=== PATIENT | female | born 1990 | race Caucasian/White ===

== ENCOUNTER 2018-02-13 06:44 | Emergency (ER) | payer OTHER, SELFPAY ==
[2018-02-13 06:49] VITALS: BP 157/98; PULSE 110; RESP 20; TEMP 37.2; O2SAT 98
--- NOTE | 2018-02-13 06:56 | DI.CT_ITS ---
SYMPTOMS/DIAGNOSIS: UPPER ABDOMINAL PAIN CT OF THE ABDOMEN AND PELVIS: Comparison is made with April,. Images were performed from the lung bases through the ischial tuberosities after IV and without oral contrast. There are mildly dilated loops of small bowel showing diffuse wall thickening, greater involving the mid and distal small bowel. The stomach and proximal small bowel, as well as colon, are unremarkable. The appendix appears normal. There is a trace amount of fluid in the pelvis, which may be physiologic. The uterus and ovaries are unremarkable. The lung bases are clear. The liver, spleen, pancreas, kidneys and gallbladder are unremarkable. IMPRESSION: Mildly dilated small bowel with thickened wall, consistent with inflammatory or infectious enteritis.
--- NOTE | 2018-02-13 06:57 | W.ED.GENAD ---
Discharge Plan Disposition Patient Disposition: HOME Condition: Stable Discharge Details Chief Complaint: Abd Prob Clinical Impression: Abdominal pain, Hypomagnesemia, Ovarian cyst Primary Care Provider: Jenifer Guzman ED Provider: Michael Rowan Home Meds and New Rx's Prescriptions: New ondansetron 4 mg tablet,disintegrating 4 mg PO TID PRN (Reason: nausea and vomiting) Qty: 9 RF: 0 Continue ibuprofen 600 MG tablet 600 mg PO NOW RF: 0 Discharge Instructions Instructions: Ovarian Cyst (ED), Abdominal Pain (ED), Hypomagnesemia (ED), Enteritis (ED) Additional Instructions: Please return immediately to the emergency department if you develop any new or worsening symptoms or if you become otherwise concerned. It is extremely important that you make an appointment to be seen in follow-up for this visit by your primary care doctor within the next week. Stand Alone Forms: Work Release Referrals: Jenifer Guzman [Primary Care Provider] - Discharge Data Discharge Date/Time-TO BE ENTERED AT DEPARTURE: 02/13/18 09:08 Medical Decision Making <Michael Rowan MD - Last Filed: 02/13/18 23:04> 27 yo female who denies chronic medical problems or prior surgeries comes in with acute onset upper abdomen pain and n/v around 5am, denies any symptoms yesterday. Denies having pain like this in the past. Drinks alcohol once a month, denies drug use. HAs soft nondistended abodmen, pain in the ruq/luq and epigastric area without guarding or rebound and no lopez's sign and no lower abdominal pain. Denies vaginal discharge so unlikely pid and given lack of pelvic pain or lower abdominal pain doubt torsion or appendicitis. Will obtain lipase, lfts and imaging to eval for pancreatitis and cholecystitis and pneumoperitoneum pt will be signed out pending labs and imaging and ultimate disposition Differential Diagnosis cholecystitis, pancreatitis, pneumoperitoneum <Nicole Miranda MD - Last Filed: 02/13/18 09:47> Becky Brown was signed out to me by Dr. Rowan at time of shift change with labs, CT abdomen/pelvis, reassessment pending. Labs show mild hypomagnesemia. CT shows small bowel wall thickening consistent with enteritis, infectious versus inflammatory, right ovarian cyst, trace free fluid in the pelvis. On my examination, patient is well and nontoxic appearing. She is pleasant, conversing normally, and appears comfortable. No further tachycardia. Her abdominal exam shows tenderness at the umbilicus and epigastric area. There is no lower abdominal tenderness. No rebound or guarding. At this point, patient's description of upper middle abdominal pain that began this morning followed by vomiting is more consistent with enteritis as etiology than ovarian cyst rupture. Lengthy discussion with patient regarding CT findings, including right ovarian cyst and likelihood of enteritis. Exam/history not consistent with significant hemorrhage from ovarian cyst, sepsis, or other acute life-threatening process at this time. Lengthy discussion with patient regarding return to the emergency department precautions and importance of outpatient follow-up with her PCP. Plan for Rx Zofran, 400 mg magnesium oxide here. Patient is amenable to the plan. Medical Records Medical records reviewed: Yes I reviewed the patient's medical records. Imaging Data Radiologic Study: Attestation: I personally reviewed and interpreted this imaging study as follows: Radiologist's impression: COMPARISON: CT ABD PELVIS WITH CONTRAST 04/28/2017 2:11 PM FINDINGS: Lower thorax: No acute findings. ABDOMEN: Liver: Normal. No mass. Gallbladder and bile ducts: Normal. No calcified stones. No ductal dilation. Pancreas: Normal. No ductal dilation. Spleen: Normal. No splenomegaly. Adrenals: Normal. No mass. Kidneys and ureters: Normal. No hydronephrosis. Stomach and bowel: Small bowel wall thickening compatible with a nonspecific enteritis, either infectious or inflammatory. Appendix: No evidence of appendicitis. PELVIS: Bladder: Unremarkable as visualized. Reproductive: Probable dominant ovarian follicular cyst present on the right. This measures 2.1 cm ABDOMEN and PELVIS: Intraperitoneal space: Trace free fluid is present which is nonspecific but may reflect physiologic fluid or rupture of an ovarian cyst or follicle. Bones/joints: No acute fracture. No dislocation. Soft tissues: Unremarkable. Vasculature: Normal. No abdominal aortic aneurysm. Lymph nodes: Normal. No enlarged lymph nodes. Other findings: . IMPRESSION: 1. Small bowel wall thickening compatible with a nonspecific enteritis, either infectious or inflammatory. 2. Trace free pelvic fluid. Lab Data Lab results reviewed: Yes I reviewed the patient's lab results. Laboratory Tests Range/Units 02/13/18 02/13/18 02/13/18 07:00 07:00 07:05 WBC (4.4-10.8) k/cumm 14.07 H RBC (4.00-5.20) m/cumm 4.74 Hgb (12.0-15.5) g/dL 13.7 Hct (36.0-46.0) % 40.4 MCV (80-95) fL 85.2 MCH (27.0-33.0) pg 28.9 MCHC (32.0-36.0) g/dL 33.9 RDW (11.7-14.6) % 14.0 Plt Count (130-400) x1000/uL 274 MPV (8.0-11.0) fL 10.0 Immature Gran % 0.2 Neutrophils % 87.3 Lymphocytes % 9.5 Monocytes % 2.3 Eosinophils % 0.5 Basophils % 0.2 Absolute Neutrophils (1.2-6.7) k/cumm 12.28 H Absolute Lymphocytes (1.2-3.4) k/cumm 1.34 Absolute Monocytes (0.11-0.7) k/cumm 0.32 Absolute Eosinophils (0.0-0.7) k/cumm 0.07 Absolute Basophils (0.0-0.2) k/cumm 0.03 PT (9.3-10.8) sec INR (1.0-3.5) APTT (21.0-31.4) sec Magnesium (1.8-2.4) mg/dL 1.6 L Total Bilirubin (0.2-1.0) mg/dL 0.3 Conjugated Bilirubin (0.00-0.20) mg/dL 0.09 AST (15-37) U/L 17 ALT (12-78) U/L 29 Alkaline Phosphatase (46-116) U/L 90 Total Protein (6.4-8.2) g/dL 7.6 Albumin (3.4-5.0) g/dL 3.8 Lipase (73-393) U/L 145 Urine Color (Yellow) Yellow Urine Clarity Clear Urine pH (5-8) 5.5 Ur Specific [place] (1.005-1.025) >= 1.030 H Urine Protein (Negative) mg/dL Trace H Urine Ketones (Negative) mg/dL Trace H Urine Blood (Negative) Small H Urine Nitrite (Negative) Negative Urine Bilirubin (Negative) Negative Urine Urobilinogen (Up TO 0.2) EU/dL 0.2 Ur Leukocyte Esterase (Negative) Negative Urine RBC (0-2) 3-5 H Urine WBC (0-5) HPF 0-2 Ur Epithelial Cells (Negative) HPF Moderate Urine Crystals (Negative) HPF Negative Urine Bacteria (Negative) HPF Moderate Urine Casts (Negative) LPF Negative Urine Mucus (Negative) Moderate Ur Culture Indicated? No/sq. contamination Urine Glucose (Negative) mg/dL Negative Range/Units 02/13/18 07:25 WBC (4.4-10.8) k/cumm RBC (4.00-5.20) m/cumm Hgb (12.0-15.5) g/dL Hct (36.0-46.0) % MCV (80-95) fL MCH (27.0-33.0) pg MCHC (32.0-36.0) g/dL RDW (11.7-14.6) % Plt Count (130-400) x1000/uL MPV (8.0-11.0) fL Immature Gran % Neutrophils % Lymphocytes % Monocytes % Eosinophils % Basophils % Absolute Neutrophils (1.2-6.7) k/cumm Absolute Lymphocytes (1.2-3.4) k/cumm Absolute Monocytes (0.11-0.7) k/cumm Absolute Eosinophils (0.0-0.7) k/cumm Absolute Basophils (0.0-0.2) k/cumm PT (9.3-10.8) sec 9.9 INR (1.0-3.5) 1.0 APTT (21.0-31.4) sec 23.3 Magnesium (1.8-2.4) mg/dL Total Bilirubin (0.2-1.0) mg/dL Conjugated Bilirubin (0.00-0.20) mg/dL AST (15-37) U/L ALT (12-78) U/L Alkaline Phosphatase (46-116) U/L Total Protein (6.4-8.2) g/dL Albumin (3.4-5.0) g/dL Lipase (73-393) U/L Urine Color (Yellow) Urine Clarity Urine pH (5-8) Ur Specific [place] (1.005-1.025) Urine Protein (Negative) mg/dL Urine Ketones (Negative) mg/dL Urine Blood (Negative) Urine Nitrite (Negative) Urine Bilirubin (Negative) Urine Urobilinogen (Up TO 0.2) EU/dL Ur Leukocyte Esterase (Negative) Urine RBC (0-2) Urine WBC (0-5) HPF Ur Epithelial Cells (Negative) HPF Urine Crystals (Negative) HPF Urine Bacteria (Negative) HPF Urine Casts (Negative) LPF Urine Mucus (Negative) Ur Culture Indicated? Urine Glucose (Negative) mg/dL HPI <Michael Rowan MD - Last Filed: 02/13/18 23:04> General Mode of arrival: ambulatory. Date/Time Provider Initiated Documentation: 02/13/18 06:50. Limitations to Documentation: no limitations. Information obtained by: patient. History of Present Illness 27 year old F presents to the emergency department with the chief complaint of abdominal pain, described as severe, with intensity rated at 8. Quality is described as stabbing, and is localized to the abdomen. Patient reports no radiation. Patient started experiencing this hour(s) (2) and it has been constant. No relieving factors improve symptom(s), Patient notes nausea/vomiting. Patient did receive the following treatments prior to arrival, none Related Data Home Medications Medication Instructions Recorded Confirmed ibuprofen 600 mg PO NOW tab 06/05/17 02/13/18 ondansetron 4 mg PO TID PRN #9 tab 02/13/18 Previous Rx's Medication Instructions Recorded ibuprofen 600 mg PO NOW tab 06/05/17 ondansetron 4 mg PO TID PRN #9 tab 02/13/18 Allergies Allergy/AdvReac Type Severity Reaction Status Date / Time sertraline HCl [From Zoloft] Allergy Unverified 02/13/18 06:51 Environmental Allergy Intermediate Runny Uncoded 02/13/18 06:51 nose, sneezing General Stated Complaint: Abd Prob SOBIA: 3 Review of Systems <Michael Rowan MD - Last Filed: 02/13/18 23:04> Review of Systems All systems reviewed & are unremarkable except as noted in HPI and below Constitutional Denies chills, Denies fever(s) and Denies weakness Cardiovascular Denies chest pain and Denies dyspnea Respiratory Denies dyspnea Genitourinary Denies dysuria Musculoskeletal Denies joint swelling Integumentary/Breasts Denies rash Neurologic Denies weakness Psychiatric Denies depression Exam <Michael Rowan MD - Last Filed: 02/13/18 23:04> Const General: no acute distress Orientation: alert [facility] Head: normal to inspection Ears: external ears normal General nose exam: external nose normal Mouth: moist mucous membranes Eyes General: appearance normal, both eyes and all related structures Neck Neck: normal visual inspection Resp Effort & Inspection: normal respiratory effort and able to speak in complete sentences Cardio Rate: regular rate GI Inspection: normal to inspection Palpation: soft and tender in the epigastrum, in the LUQ and in the RUQ Skin General skin exam: no rashes or lesions noted Neuro General: alert and oriented x3 Extrem General: normal to inspection Psych Mental Status: mental status grossly normal Course <Michael Rowan MD - Last Filed: 02/13/18 23:04> Vital Signs Temperature 37.2 C 02/13/18 06:49 Pulse 110 H 02/13/18 06:49 Respiratory Rate 20 02/13/18 06:49 Blood Pressure 157/98 H 02/13/18 06:49 Pulse Oximetry 98 02/13/18 06:49 Temperature 37.2 C 02/13/18 06:49 Temperature Source Temporal Artery Scan 02/13/18 06:49 Pulse 110 H 02/13/18 06:49 Respiratory Rate 20 02/13/18 06:49 Respiratory Effort Non-Labored 02/13/18 06:49 Blood Pressure 157/98 H 02/13/18 06:49 Pulse Oximetry 98 02/13/18 06:49 Oxygen Delivery Method Room Air 02/13/18 06:49 Oxygen Flow Rate 0 02/13/18 06:49 Pain Level 10 02/13/18 06:52
--- NOTE | 2018-02-13 07:00 | ED.GENADUL_ITS ---
Discharge Plan Disposition Patient Disposition: HOME Condition: Stable Discharge Details Chief Complaint: Abd Prob Clinical Impression: Abdominal pain, Hypomagnesemia, Ovarian cyst Primary Care Provider: Jenifer Guzman ED Provider: Michael Rowan Home Meds and New Rx's Prescriptions: New ondansetron 4 mg tablet,disintegrating 4 mg PO TID PRN (Reason: nausea and vomiting) Qty: 9 RF: 0 Continue ibuprofen 600 MG tablet 600 mg PO NOW RF: 0 Discharge Instructions Instructions: Ovarian Cyst (ED), Abdominal Pain (ED), Hypomagnesemia (ED), Enteritis (ED) Additional Instructions: Please return immediately to the emergency department if you develop any new or worsening symptoms or if you become otherwise concerned. It is extremely important that you make an appointment to be seen in follow-up for this visit by your primary care doctor within the next week. Stand Alone Forms: Work Release Referrals: Jenifer Guzman [Primary Care Provider] - Discharge Data Discharge Date/Time-TO BE ENTERED AT DEPARTURE: 02/13/18 09:08 Medical Decision Making <Michael Rowan MD - Last Filed: 02/13/18 23:04> 27 yo female who denies chronic medical problems or prior surgeries comes in with acute onset upper abdomen pain and n/v around 5am, denies any symptoms yesterday. Denies having pain like this in the past. Drinks alcohol once a month , denies drug use. HAs soft nondistended abodmen, pain in the ruq/luq and epigastric area without guarding or rebound and no lopez's sign and no lower abdominal pain. Denies vaginal discharge so unlikely pid and given lack of pelvic pain or lower abdominal pain doubt torsion or appendicitis. Will obtain lipase, lfts and imaging to eval for pancreatitis and cholecystitis and pneumoperitoneum pt will be signed out pending labs and imaging and ultimate disposition Differential Diagnosis cholecystitis, pancreatitis, pneumoperitoneum <Nicole Miranda MD - Last Filed: 02/13/18 09:47> Becky Brown was signed out to me by Dr. Rowan at time of shift change with labs, CT abdomen/pelvis, reassessment pending. Labs show mild hypomagnesemia. CT shows small bowel wall thickening consistent with enteritis, infectious versus inflammatory, right ovarian cyst, trace free fluid in the pelvis. On my examination, patient is well and nontoxic appearing. She is pleasant, conversing normally, and appears comfortable. No further tachycardia. Her abdominal exam shows tenderness at the umbilicus and epigastric area. There is no lower abdominal tenderness. No rebound or guarding. At this point, patient' s description of upper middle abdominal pain that began this morning followed by vomiting is more consistent with enteritis as etiology than ovarian cyst rupture. Lengthy discussion with patient regarding CT findings, including right ovarian cyst and likelihood of enteritis. Exam/history not consistent with significant hemorrhage from ovarian cyst, sepsis, or other acute life- threatening process at this time. Lengthy discussion with patient regarding return to the emergency department precautions and importance of outpatient follow-up with her PCP. Plan for Rx Zofran, 400 mg magnesium oxide here. Patient is amenable to the plan. Medical Records Medical records reviewed: Yes I reviewed the patient's medical records. Imaging Data Radiologic Study: Attestation: I personally reviewed and interpreted this imaging study as follows: Radiologist's impression: COMPARISON: CT ABD PELVIS WITH CONTRAST 04/28/2017 2:11 PM FINDINGS: Lower thorax: No acute findings. ABDOMEN: Liver: Normal. No mass. Gallbladder and bile ducts: Normal. No calcified stones. No ductal dilation. Pancreas: Normal. No ductal dilation. Spleen: Normal. No splenomegaly. Adrenals: Normal. No mass. Kidneys and ureters: Normal. No hydronephrosis. Stomach and bowel: Small bowel wall thickening compatible with a nonspecific enteritis, either infectious or inflammatory. Appendix: No evidence of appendicitis. PELVIS: Bladder: Unremarkable as visualized. Reproductive: Probable dominant ovarian follicular cyst present on the right. This measures 2.1 cm ABDOMEN and PELVIS: Intraperitoneal space: Trace free fluid is present which is nonspecific but may reflect physiologic fluid or rupture of an ovarian cyst or follicle. Bones/joints: No acute fracture. No dislocation. Soft tissues: Unremarkable. Vasculature: Normal. No abdominal aortic aneurysm. Lymph nodes: Normal. No enlarged lymph nodes. Other findings: . IMPRESSION: 1. Small bowel wall thickening compatible with a nonspecific enteritis, either infectious or inflammatory. 2. Trace free pelvic fluid. Lab Data Lab results reviewed: Yes I reviewed the patient's lab results. Laboratory Tests Range/Units 02/13/18 02/13/18 02/13/18 07:00 07:00 07:05 WBC (4.4-10.8) k/cumm 14.07 H RBC (4.00-5.20) m/cumm 4.74 Hgb (12.0-15.5) g/dL 13.7 Hct (36.0-46.0) % 40.4 MCV (80-95) fL 85.2 MCH (27.0-33.0) pg 28.9 MCHC (32.0-36.0) g/dL 33.9 RDW (11.7-14.6) % 14.0 Plt Count (130-400) x1000/uL 274 MPV (8.0-11.0) fL 10.0 Immature Gran % 0.2 Neutrophils % 87.3 Lymphocytes % 9.5 Monocytes % 2.3 Eosinophils % 0.5 Basophils % 0.2 Absolute Neutrophils (1.2-6.7) k/cumm 12.28 H Absolute Lymphocytes (1.2-3.4) k/cumm 1.34 Absolute Monocytes (0.11-0.7) k/cumm 0.32 Absolute Eosinophils (0.0-0.7) k/cumm 0.07 Absolute Basophils (0.0-0.2) k/cumm 0.03 PT (9.3-10.8) sec INR (1.0-3.5) APTT (21.0-31.4) sec Magnesium (1.8-2.4) mg/dL 1.6 L Total Bilirubin (0.2-1.0) mg/dL 0.3 Conjugated Bilirubin (0.00-0.20) mg/dL 0.09 AST (15-37) U/L 17 ALT (12-78) U/L 29 Alkaline Phosphatase (46-116) U/L 90 Total Protein (6.4-8.2) g/dL 7.6 Albumin (3.4-5.0) g/dL 3.8 Lipase (73-393) U/L 145 Urine Color (Yellow) Yellow Urine Clarity Clear Urine pH (5-8) 5.5 Ur Specific [place] (1.005-1.025) >= 1.030 H Urine Protein (Negative) mg/dL Trace H Urine Ketones (Negative) mg/dL Trace H Urine Blood (Negative) Small H Urine Nitrite (Negative) Negative Urine Bilirubin (Negative) Negative Urine Urobilinogen (Up TO 0.2) EU/dL 0.2 Ur Leukocyte Esterase (Negative) Negative Urine RBC (0-2) 3-5 H Urine WBC (0-5) HPF 0-2 Ur Epithelial Cells (Negative) HPF Moderate Urine Crystals (Negative) HPF Negative Urine Bacteria (Negative) HPF Moderate Urine Casts (Negative) LPF Negative Urine Mucus (Negative) Moderate Ur Culture Indicated? No/sq. contamination Urine Glucose (Negative) mg/dL Negative Range/Units 02/13/18 07:25 WBC (4.4-10.8) k/cumm RBC (4.00-5.20) m/cumm Hgb (12.0-15.5) g/dL Hct (36.0-46.0) % MCV (80-95) fL MCH (27.0-33.0) pg MCHC (32.0-36.0) g/dL RDW (11.7-14.6) % Plt Count (130-400) x1000/uL MPV (8.0-11.0) fL Immature Gran % Neutrophils % Lymphocytes % Monocytes % Eosinophils % Basophils % Absolute Neutrophils (1.2-6.7) k/cumm Absolute Lymphocytes (1.2-3.4) k/cumm Absolute Monocytes (0.11-0.7) k/cumm Absolute Eosinophils (0.0-0.7) k/cumm Absolute Basophils (0.0-0.2) k/cumm PT (9.3-10.8) sec 9.9 INR (1.0-3.5) 1.0 APTT (21.0-31.4) sec 23.3 Magnesium (1.8-2.4) mg/dL Total Bilirubin (0.2-1.0) mg/dL Conjugated Bilirubin (0.00-0.20) mg/dL AST (15-37) U/L ALT (12-78) U/L Alkaline Phosphatase (46-116) U/L Total Protein (6.4-8.2) g/dL Albumin (3.4-5.0) g/dL Lipase (73-393) U/L Urine Color (Yellow) Urine Clarity Urine pH (5-8) Ur Specific [place] (1.005-1.025) Urine Protein (Negative) mg/dL Urine Ketones (Negative) mg/dL Urine Blood (Negative) Urine Nitrite (Negative) Urine Bilirubin (Negative) Urine Urobilinogen (Up TO 0.2) EU/dL Ur Leukocyte Esterase (Negative) Urine RBC (0-2) Urine WBC (0-5) HPF Ur Epithelial Cells (Negative) HPF Urine Crystals (Negative) HPF Urine Bacteria (Negative) HPF Urine Casts (Negative) LPF Urine Mucus (Negative) Ur Culture Indicated? Urine Glucose (Negative) mg/dL HPI <Michael Rowan MD - Last Filed: 02/13/18 23:04> General Mode of arrival: ambulatory . Date/Time Provider Initiated Documentation: 02/13/18 06:50 . Limitations to Documentation: no limitations . Information obtained by: patient . History of Present Illness 27 year old F presents to the emergency department with the chief complaint of abdominal pain, described as severe, with intensity rated at 8. Quality is described as stabbing, and is localized to the abdomen. Patient reports no radiation. Patient started experiencing this hour(s) (2) and it has been constant. No relieving factors improve symptom(s), Patient notes nausea/ vomiting. Patient did receive the following treatments prior to arrival, none Related Data Home Medications Medication Instructions Recorded Confirmed ibuprofen 600 mg PO NOW tab 06/05/17 02/13/18 ondansetron 4 mg PO TID PRN #9 tab 02/13/18 Previous Rx's Medication Instructions Recorded ibuprofen 600 mg PO NOW tab 06/05/17 ondansetron 4 mg PO TID PRN #9 tab 02/13/18 Allergies Allergy/AdvReac Type Severity Reaction Status Date / Time sertraline HCl [From Zoloft] Allergy Unverified 02/13/18 06:51 Environmental Allergy Intermediate Runny Uncoded 02/13/18 06:51 nose, sneezing General Stated Complaint: Abd Prob SOBIA: 3 Review of Systems <Michael Rowan MD - Last Filed: 02/13/18 23:04> Review of Systems All systems reviewed & are unremarkable except as noted in HPI and below Constitutional Denies chills, Denies fever(s) and Denies weakness Cardiovascular Denies chest pain and Denies dyspnea Respiratory Denies dyspnea Genitourinary Denies dysuria Musculoskeletal Denies joint swelling Integumentary/Breasts Denies rash Neurologic Denies weakness Psychiatric Denies depression Exam <Michael Rowan MD - Last Filed: 02/13/18 23:04> Const General: no acute distress Orientation: alert [facility] Head: normal to inspection Ears: external ears normal General nose exam: external nose normal Mouth: moist mucous membranes Eyes General: appearance normal, both eyes and all related structures Neck Neck: normal visual inspection Resp Effort & Inspection: normal respiratory effort and able to speak in complete sentences Cardio Rate: regular rate GI Inspection: normal to inspection Palpation: soft and tender in the epigastrum, in the LUQ and in the RUQ Skin General skin exam: no rashes or lesions noted Neuro General: alert and oriented x3 Extrem General: normal to inspection Psych Mental Status: mental status grossly normal Course <Michael Rowan MD - Last Filed: 02/13/18 23:04> Vital Signs Temperature 37.2 C 02/13/18 06:49 Pulse 110 H 02/13/18 06:49 Respiratory Rate 20 02/13/18 06:49 Blood Pressure 157/98 H 02/13/18 06:49 Pulse Oximetry 98 02/13/18 06:49 Temperature 37.2 C 02/13/18 06:49 Temperature Source Temporal Artery Scan 02/13/18 06:49 Pulse 110 H 02/13/18 06:49 Respiratory Rate 20 02/13/18 06:49 Respiratory Effort Non-Labored 02/13/18 06:49 Blood Pressure 157/98 H 02/13/18 06:49 Pulse Oximetry 98 02/13/18 06:49 Oxygen Delivery Method Room Air 02/13/18 06:49 Oxygen Flow Rate 0 02/13/18 06:49 Pain Level 10 02/13/18 06:52
[2018-02-13] MEDS: Ondansetron 4 MG/2 ML VIAL IVP (07:05)
[2018-02-13] MEDS: Normal Saline 1,000 ML 1000 ML IV (07:05)
[2018-02-13] MEDS: Ketorolac 15 MG/ML VIAL IVP (07:10)
[2018-02-13 07:24] LABS: Bilirubin Negative (Negative); Blood Small (Negative); Clarity Clear; Glucose Negative (Negative); Ketones Trace mg/dL (Negative); Leukocyte Esterase Negative (Negative); Nitrite Negative (Negative); Specific Gravity >= 1.030 (1.005-1.025); Urobilinogen 0.2 EU/dL (Up TO 0.2); pH 5.5 (5-8)
[2018-02-13 07:28] LABS: Abs Immature Grans 0.03 k/cumm (0.0-0.09); Absolute Basophil Count 0.03 k/cumm (0.0-0.2); Absolute Eosinophil Count 0.07 k/cumm (0.0-0.7); Absolute Lymphocyte Count 1.34 k/cumm (1.2-3.4); Basophils % 0.2; Eosinophils % 0.5; HCT 40.4 % (36.0-46.0); HGB 13.7 g/dL (12.0-15.5); Immature Grans % 0.2; Lymphocytes % 9.5; Mean Corp. HGB Concentration 33.9 g/dL (32.0-36.0); Mean Corpuscular Hemoglobin 28.9 pg (27.0-33.0); Mean Corpuscular Volume 85.2 fL (80-95); Monocytes % 2.3; Neutrophils % 87.3; Platelet Count 274 x1000/uL (130-400); RBC 4.74 m/cumm (4.00-5.20); White Blood Cell Count 14.07 k/cumm (4.4-10.8)
[2018-02-13 07:30] LABS: Absolute Monocyte Count 0.32 k/cumm (0.11-0.7); Absolute Neutrophil Count 12.28 k/cumm (1.2-6.7)
[2018-02-13 07:33] LABS: Bacteria Moderate HPF (Negative); C & S Indicated? No/Sq. Contamination; Casts Negative LPF (Negative); Crystals Negative HPF (Negative); Epithelial Cells Moderate HPF (Negative); Mucus Moderate (Negative); WBC 0-2 HPF (0-5)
[2018-02-13] MEDS: Omnipaque 350 MG/ML 100 ML BTL IJ (07:46)
[2018-02-13 07:47] LABS: ALT 29 U/L (12-78); AST 17 U/L (15-37); Albumin 3.8 g/dL (3.4-5.0); Alkaline Phosphatase 90 U/L (46-116); Bilirubin, Direct 0.09 mg/dL (0.00-0.20); Bilirubin, Total 0.3 mg/dL (0.2-1.0); Lipase 145 U/L (73-393); Magnesium 1.6 mg/dL (1.8-2.4); Total Protein 7.6 g/dL (6.4-8.2)
[2018-02-13 07:50] LABS: PTT Activated 23.3 sec (21.0-31.4); Prothrombin Time 9.9 sec (9.3-10.8)
--- NOTE | 2018-02-13 08:05 | DI.VRAD_ITS ---
EXAM: CT Abdomen and Pelvis With Intravenous Contrast EXAM DATE/TIME: 02/13/2018 6:57 AM CLINICAL HISTORY: 27 years old, female; Pain; Other: Upper abd pain TECHNIQUE: Axial computed tomography images of the abdomen and pelvis with intravenous contrast. Coronal and sagittal reformatted images were created and reviewed. COMPARISON: CT ABD PELVIS WITH CONTRAST 04/28/2017 2:11 PM FINDINGS: Lower thorax: No acute findings. ABDOMEN: Liver: Normal. No mass. Gallbladder and bile ducts: Normal. No calcified stones. No ductal dilation. Pancreas: Normal. No ductal dilation. Spleen: Normal. No splenomegaly. Adrenals: Normal. No mass. Kidneys and ureters: Normal. No hydronephrosis. Stomach and bowel: Small bowel wall thickening compatible with a nonspecific enteritis, either infectious or inflammatory. Appendix: No evidence of appendicitis. PELVIS: Bladder: Unremarkable as visualized. Reproductive: Probable dominant ovarian follicular cyst present on the right. This measures 2.1 cm ABDOMEN and PELVIS: Intraperitoneal space: Trace free fluid is present which is nonspecific but may reflect physiologic fluid or rupture of an ovarian cyst or follicle. Bones/joints: No acute fracture. No dislocation. Soft tissues: Unremarkable. Vasculature: Normal. No abdominal aortic aneurysm. Lymph nodes: Normal. No enlarged lymph nodes. Other findings: . IMPRESSION: 1. Small bowel wall thickening compatible with a nonspecific enteritis, either infectious or inflammatory. 2. Trace free pelvic fluid. Dictated and Authenticated by: Ambrocio Olson MD. Ordering:EDNA IRVIN MD
[2018-02-13] MEDS: Magnesium Oxide 400 MG TAB PO (08:52)
[2018-02-13 09:10] VITALS: BP 136/81; PULSE 95; RESP 16; TEMP 37; O2SAT 99
== END 2018-02-13 09:08 | disposition home or self-care (01) ==
PROVIDERS: Emergency Provider Emergency Medicine; PCP Family Medicine
DX: R10.10 Upper abdominal pain, unspecified (principal); E83.42 Hypomagnesemia; R11.2 Nausea with vomiting, unspecified; N83.201 Unspecified ovarian cyst, right side; R93.3 Abnormal findings on diagnostic imaging of other parts of digestive tract
CPT/HCPCS: 36415; 80076; 81025; 83690; 96361; 96374; 96375; 99285; 74177; 81003; 81015; 83735; 85025; 85610; 85730; 99284; J1885; J2405; J3490

== ENCOUNTER 2018-08-17 14:07 | Outpatient (REF) | payer OTHER, SELFPAY ==
--- NOTE | 2018-08-17 13:30 | PAPFT_PTH ---
PATIENT: Becky Brown LOC: [facility] U#:[id number] AGE/SX: 28/F ROOM: RE08/17/[address]: Patricia Rowan NP : 1990 BED: DIS: 08/17/2018 SPEC #: [id number] RECD: 08/17/18 17:51 STATUS: LUIS REElvis #: [id number] GLORIA: 08/17/18 13:[address]: Patricia Rowan NP DEPT: [facility] Cytology RECD BY: Grazyna Paul ENTERED: 08/17/18 17:51 SP TYPE: PAPFT OTHR DR: Jenifer Guzman Tissues: 1 - CX/ENDOCX FOR PAP SMEARS Procedures: PAP THIN PREP/UVM Screening Comments: [id number]
== END 2018-08-17 14:27 ==
LOC: LBN 14:07
PROVIDERS: PCP Family Medicine; Visit Provider Nurse Practitioner Women's Health
DX: Z12.4 Encounter for screening for malignant neoplasm of cervix (principal)
CPT/HCPCS: 88142

== ENCOUNTER 2018-08-18 09:00 | Outpatient (CLI) | payer OTHER, SELFPAY ==
--- NOTE | 2018-08-18 12:35 | DI.US_ITS ---
SYMPTOMS/DIAGNOSIS: ABNORMAL UTERINE BLEEDING, PELVIC PAIN, R10.2 PELVIC ULTRASOUND: Transabdominal and transvaginal examination was performed. The uterus measures 8 cm long x 4.4 cm AP x 5.7 cm transverse. The endometrial stripe measures 1.7 cm. It is homogeneous with no abnormal blood flow. No myometrial mass is seen. Cervical nabothian cysts are present. Both the ovaries were visualized. They are gross unremarkable. No free pelvic fluid or hydronephrosis is identified. IMPRESSION: Endometrial stripe measuring 1.7 cm, which is mildly thickened but otherwise unremarkable. A follow-up pelvic ultrasound should be considered for reevaluation of the endometrial stripe in six to eight weeks.
== END 2018-08-18 09:20 ==
PROVIDERS: PCP Family Medicine; Visit Provider Nurse Practitioner Women's Health
DX: R10.2 Pelvic and perineal pain (principal); N93.8 Other specified abnormal uterine and vaginal bleeding; R93.89 Abnormal findings on diagnostic imaging of other specified body structures
CPT/HCPCS: 76830; 76856

== ENCOUNTER 2018-08-22 11:30 | Emergency (ER) | payer OTHER, SELFPAY ==
--- NOTE | 2018-08-22 11:37 | NUR.NOTE ---
pt states that she has had vaginal bleeding for a month as well as what she discribes as a lump on her stomach 5cm with intermittent localized pin 11/28 pt went to [facility] last and received an US which she has not received results pt ih here today because she had significantly more bleeding this morning
[2018-08-22 11:42] VITALS: BP 159/92; PULSE 80; RESP 16; TEMP 37.3; O2SAT 100
--- NOTE | 2018-08-22 11:52 | DI.CT_ITS ---
SYMPTOMS/DIAGNOSIS: LEFT LOWER ABD MASS, VAGINAL BLEEDING ABDOMINAL AND PELVIC CT: CT examination of the abdomen and pelvis was performed with a bolus infusion of 100 cc's of Omnipaque 350. Images obtained through the lung bases are unremarkable. The liver, spleen and pancreas appear normal. There is a stable 1 cm left adrenal nodule unchanged from CT of 02/13/18. Otherwise the adrenals and kidneys are unremarkable with no evidence of obstruction or calcification. The abdominal aorta is of normal diameter and no major vascular abnormality is seen. The appendix appears normal. No evidence of diverticulitis or bowel obstruction. ELECTRONICS SPECIALIST structures appear intact. No abdominal wall hernia seen. The patient reportedly has a palpable abnormality left paraumbilical and this corresponds to a subcutaneous elongated focus of somewhat irregular radiodensity, this appears little changed from previous examination of 02/13/18. This could represent infectious process or scar. Neoplastic disease not likely but not entirely excluded. No hernia identified.
--- NOTE | 2018-08-22 11:57 | W.ED.GENAD ---
Discharge Plan Disposition Patient Disposition: HOME Condition: Good Discharge Details Chief Complaint: Abd Prob Clinical Impression: Abnormal vaginal bleeding Primary Care Provider: Jenifer Guzman ED Provider: Luis A Saleem Home Meds and New Rx's Prescriptions: No Action albuterol sulfate 90 mcg/actuation HFA aerosol inhaler 2 puff IH Q6H PRNRF: 0 norethindrone-e.estradiol-iron [] 1 mg-20 mcg (24)/75 mg (4) tablet 1 tab PO DAILY Qty: 84 RF: 1 Discharge Instructions Instructions: Dysfunctional Uterine Bleeding (ED) Additional Instructions: Your hemoglobin levels are stable, your vital signs are stable. I have discussed your case with Dr. Villafuerte, and she agrees on the need for estrogen and progesterone to help stop your bleeding. She is calling in a prescription for you at this time. Please go to your pharmacy to pick this up. Please follow-up closely with them for reassessment. If you notice any worsening of your symptoms, or any new symptoms such as vomiting, diarrhea, fever, chills, shortness of breath, chest pain, numbness, weakness, or fainting , please return immediately to the emergency department for reevaluation. Please follow up with your primary care provider as soon as possible for reassessment and reevaluation. As always, it was a pleasure participating in your medical care today. Referrals: Yuli Villafuerte MD [ [facility] STAFF PHYSICIAN] - Discharge Data Discharge Date/Time-TO BE ENTERED AT DEPARTURE: 08/22/18 14:42 Medical Decision Making This is a pleasant 28-year-old female who presents today for evaluation of vaginal bleeding for the last month, notably worsened over the last 2 to 3 days. She states that she is soaking a pad every 1-1/2 hours. She denies any severe abdominal or pelvic pain. She does admit to mild nausea and cramping. She does have a palpable mild firm mass in her left lower abdomen but it feels to be in the subcutaneous tissues. With a notably worsening vaginal bleeding, do feel that she may benefit from oral estrogen at this time. She had an ultrasound last week which showed a thickened endometrial stripe. We will get laboratory work-up to evaluate for hemoglobin status, gently rehydrate, perform a vaginal exam, and also get a CT scan to rule out any acute mass, or other concerning abnormality with the atypical pelvic mass/pain. 2:[address] scan has returned and demonstrates no evidence of acute process. The atypical subcutaneous aspect on her abdomen is most likely secondary to a fibrous fat buildup. No evidence of malignancy, mass, or other significant abnormalities. No pelvic abnormalities. Laboratory work-up demonstrates a stable hemoglobin, normal vital signs no hypotension or tachycardia. I discussed the case with Dr. Villafuerte, she agrees on the need for supplemental estrogen and progesterone. She will be calling this prescription into the patient's pharmacy. And contacting them for close follow-up. I have extensively reviewed the treatment plan and discharge instructions with the patient and their family. I have addressed all patient concerns at this time. The patient and family was made aware of what symptoms to monitor for that would warrant a return to the emergency department. Discussed the plan with the patient and family, they demonstrate verbal understanding and agreement with our assessment and plan at this time. Exam(s) a US:US pelvis & transvaginal SYMPTOMS/DIAGNOSIS: ABNORMAL UTERINE BLEEDING, PELVIC PAIN, R10.2 PELVIC ULTRASOUND: Transabdominal and transvaginal examination was performed. The uterus measures 8 cm long x 4.4 cm AP x 5.7 cm transverse. The endometrial stripe measures 1.7 cm. It is homogeneous with no abnormal blood flow. No myometrial mass is seen. Cervical nabothian cysts are present. Both the ovaries were visualized. They are gross unremarkable. No free pelvic fluid or hydronephrosis is identified. IMPRESSION: Endometrial stripe measuring 1.7 cm, which is mildly thickened but otherwise unremarkable. A follow-up pelvic ultrasound should be considered for reevaluation of the endometrial stripe in six to eight weeks. Ordered By: Patricia Rowan NP CC: Exam(s) a CT:CT abdomen & pelvis w SYMPTOMS/DIAGNOSIS: LEFT LOWER ABD MASS, VAGINAL BLEEDING ABDOMINAL AND PELVIC CT: CT examination of the abdomen and pelvis was performed with a bolus infusion of 100 cc's of Omnipaque 350. Images obtained through the lung bases are unremarkable. The liver, spleen and pancreas appear normal. There is a stable 1 cm left adrenal nodule unchanged from CT of 02/13/18. Otherwise the adrenals and kidneys are unremarkable with no evidence of obstruction or calcification. The abdominal aorta is of normal diameter and no major vascular abnormality is seen. The appendix appears normal. No evidence of diverticulitis or bowel obstruction. SHOE TRIMMER structures appear intact. No abdominal wall hernia seen. The patient reportedly has a palpable abnormality left paraumbilical and this corresponds to a subcutaneous elongated focus of somewhat irregular radiodensity, this appears little changed from previous examination of 02/13/18. This could represent infectious process or scar. Neoplastic disease not likely but not entirely excluded. No hernia identified. [id number]: Total DLP = 0.00 mGy-cm Ordered By: Luis A Saleem DO [facility] General Date/Time Provider Initiated Documentation: 08/22/18 11:43. HPI Narrative: This is a pleasant 50-year-old female with no significant past medical history who presents for vaginal bleeding. Patient states that vaginal bleeding started 1 month ago on July 24, she has [facility] and had an ultrasound 1 week ago that showed a thickening of the endometrial stripe. The bleeding was notably mild over the last 3 to 4 weeks, however over the last 72 hours and his notably increased, is going through a new pad every 1-1/2 hours and she states that it is soaked. She does admit to mild cramping but that is normal. She denies any other urinary symptoms, vomiting or diarrhea, or any previous vaginal bleeding. She is not on control and is not been on control greater than 2 years. She denies any previous surgical history. She also complains of a small lump in her left lower abdomen. She states that it is tender to palpation, and is been present for the last few weeks. Patient has no other complaints at this time. No other modifying factors. Of note she does state that they tried to call [facility] multiple times today and they were unable to get in contact with anyone. 10 years ago the patient did have chlamydia, but no sexually transmitted infection since then. Related Data Home Medications Medication Instructions Recorded Confirmed albuterol sulfate HFA 90 2 puff IH Q6H PRN 08/17/18 08/22/18 mcg/actuation aerosol inhaler norethindrone 1 mg-ethinyl 1 tab PO DAILY #84 tab 08/22/18 estradiol 20 mcg (24)-iron 75 mg (4) tablet Previous Rx's Medication Instructions Recorded norethindrone 1 mg-ethinyl 1 tab PO DAILY #84 tab 08/22/18 estradiol 20 mcg (24)-iron 75 mg (4) tablet Allergies Allergy/AdvReac Type Severity Reaction Status Date / Time sertraline HCl [From Zoloft] Allergy Unverified 08/22/18 11:44 Environmental Allergy Intermediate Runny Uncoded 08/22/18 11:44 nose, sneezing General Stated Complaint: Abd Prob SOBIA: 3 Review of Systems Review of Systems All systems reviewed & are unremarkable except as noted in HPI and below PFSH Social History Smoking/Tobacco Use Status: Never Alcohol Intake: never Drug use: Never Substance use type: does not use Do you feel safe at home: Yes Do you feel safe in your relationship?: Yes Female Reproductive History Menstrual Age of Menarche: 10 control method: none and other (fiance with vasectomy) History History 0 Para Hx # Term Pregnancies Multiple births Hx # Pregnancies Ectopic pregnancies AB induced Hx Number of Living Children AB spontaneous Exam Narrative Exam Narrative: 1.Const: Well-nourished, Well-developed, appearing stated age 2.Eyes: PERRL, no conjunctival injection, and symmetrical lids. 3.ENT: Atraumatic external nose and ears. Moist MM. Neck: Symmetric, trachea midline, No thyromegaly. 4.CVS: +S1/S2, No murmurs or gallops. Peripheral pulses 2+ and equal in all extremities. Brisk capillary refill in all extremities. 5.RESP: Unlabored respiratory effort. Clear to auscultation bilaterally. No wheezes rales or rhonchi 6.GI: Soft, Nontender/Nondistended, No hepatosplenomegaly. No guarding or rebound. There is a small firm mass in the left lower subcutaneous region that is notably tender and palpable. It certainly feels atypical of a hernia. Primary concern is for a firm lipoma. No significant pelvic tenderness on palpation. No pain at McBurney's point, negative Jauregui sign Genital exam: Genital exam was performed with female nurse Kera at bedside, vaginal exam demonstrates notable blood in the vaginal vault, with vaginal bleeding. No brisk flow though. No cervical lesions. Tenderness was present on palpation of the cervix and for bimanual exam bilaterally. Negative chandelier sign. 7.MSK: Normocephalic/Atraumatic, Extremities w/o deformity or ttp No cyanosis or clubbing, Normal movement of all extremities 8.Skin: Warm, Dry. No rashes or lesions. 9.Neuro: documentation coordinator II-XII grossly intact. Sensation grossly intact, no focal neurologic deficits. 10.Psych: (AAO) x3. Appropriate mood and affect Course Vital Signs Temperature 37.3 C 08/22/18 11:42 Pulse 80 08/22/18 11:42 Respiratory Rate 16 08/22/18 11:42 Blood Pressure 159/92 H 08/22/18 11:42 Pulse Oximetry 100 08/22/18 11:42 Temperature 37.3 C 08/22/18 11:42 Temperature Source Skin 08/22/18 11:42 Pulse 80 08/22/18 11:42 Respiratory Rate 16 08/22/18 11:42 Respiratory Effort 08/22/18 11:45 Blood Pressure 159/92 H 08/22/18 11:42 Blood Pressure Position Sitting 08/22/18 11:42 Pulse Oximetry 100 08/22/18 11:42 Oxygen Delivery Method Room Air 08/22/18 11:42 Oxygen Flow Rate 0 08/22/18 11:42 Pain Level 5 08/22/18 11:42
--- NOTE | 2018-08-22 12:00 | ED.GENADUL_ITS ---
Discharge Plan Disposition Patient Disposition: HOME Condition: Good Discharge Details Chief Complaint: Abd Prob Clinical Impression: Abnormal vaginal bleeding Primary Care Provider: Jeinfer Guzman ED Provider: Luis A Saleem Home Meds and New Rx's Prescriptions: No Action albuterol sulfate 90 mcg/actuation HFA aerosol inhaler 2 puff IH Q6H PRNRF: 0 norethindrone-e.estradiol-iron [] 1 mg-20 mcg (24)/75 mg (4) tablet 1 tab PO DAILY Qty: 84 RF: 1 Discharge Instructions Instructions: Dysfunctional Uterine Bleeding (ED) Additional Instructions: Your hemoglobin levels are stable, your vital signs are stable. I have discussed your case with Dr. Villafuerte, and she agrees on the need for estrogen and progesterone to help stop your bleeding. She is calling in a prescription for you at this time. Please go to your pharmacy to pick this up. Please follow-up closely with them for reassessment. If you notice any worsening of your symptoms, or any new symptoms such as vomiting, diarrhea, fever, chills, shortness of breath, chest pain, numbness, weakness, or fainting , please return immediately to the emergency department for reevaluation. Please follow up with your primary care provider as soon as possible for reassessment and reevaluation. As always, it was a pleasure participating in your medical care today. Referrals: Yuli Villafuerte MD [ [facility] STAFF PHYSICIAN] - Discharge Data Discharge Date/Time-TO BE ENTERED AT DEPARTURE: 08/22/18 14:42 Medical Decision Making This is a pleasant 28-year-old female who presents today for evaluation of vaginal bleeding for the last month, notably worsened over the last 2 to 3 days. She states that she is soaking a pad every 1-1/2 hours. She denies any severe abdominal or pelvic pain. She does admit to mild nausea and cramping. She does have a palpable mild firm mass in her left lower abdomen but it feels to be in the subcutaneous tissues. With a notably worsening vaginal bleeding, do feel that she may benefit from oral estrogen at this time. She had an ultrasound last week which showed a thickened endometrial stripe. We will get laboratory work-up to evaluate for hemoglobin status, gently rehydrate, perform a vaginal exam, and also get a CT scan to rule out any acute mass, or other concerning abnormality with the atypical pelvic mass/pain. 2:[address] scan has returned and demonstrates no evidence of acute process. The atypical subcutaneous aspect on her abdomen is most likely secondary to a fibrous fat buildup. No evidence of malignancy, mass, or other significant abnormalities. No pelvic abnormalities. Laboratory work-up demonstrates a stable hemoglobin, normal vital signs no hypotension or tachycardia. I discussed the case with Dr. Villafuerte, she agrees on the need for supplemental estrogen and progesterone. She will be calling this prescription into the patient's pharmacy. And contacting them for close follow-up. I have extensively reviewed the treatment plan and discharge instructions with the patient and their family. I have addressed all patient concerns at this time. The patient and family was made aware of what symptoms to monitor for that would warrant a return to the emergency department. Discussed the plan with the p atient and family, they demonstrate verbal understanding and agreement with our assessment and plan at this time. Exam(s) a US:US pelvis & transvaginal SYMPTOMS/DIAGNOSIS: ABNORMAL UTERINE BLEEDING, PELVIC PAIN, R10.2 PELVIC ULTRASOUND: Transabdominal and transvaginal examination was performed. The uterus measures 8 cm long x 4.4 cm AP x 5.7 cm transverse. The endometrial stripe measures 1.7 cm. It is homogeneous with no abnormal blood flow. No myometrial mass is seen. Cervical nabothian cysts are present. Both the ovaries were visualized. They are gross unremarkable. No free pelvic fluid or hydronephrosis is identified. IMPRESSION: Endometrial stripe measuring 1.7 cm, which is mildly thickened but otherwise unremarkable. A follow-up pelvic ultrasound should be considered for reevaluation of the endometrial stripe in six to eight weeks. Ordered By: Patricia Rowan NP CC: Exam(s) a CT:CT abdomen & pelvis w SYMPTOMS/DIAGNOSIS: LEFT LOWER ABD MASS, VAGINAL BLEEDING ABDOMINAL AND PELVIC CT: CT examination of the abdomen and pelvis was performed with a bolus infusion of 100 cc's of Omnipaque 350. Images obtained through the lung bases are unremarkable. The liver, spleen and pancreas appear normal. There is a stable 1 cm left adrenal nodule unchanged from CT of 02/13/18. Otherwise the adrenals and kidneys are unremarkable with no evidence of obs truction or calcification. The abdominal aorta is of normal diameter and no major vascular abnormality is seen. The appendix appears normal. No evidence of diverticulitis or bowel obstruction. TWISTING FRAME FIXER structures appear intact. No abdominal wall hernia seen. The patient reportedly has a palpable abnormality left paraumbilical and this corresponds to a subcutaneous elongated focus of somewhat irregular radiodensity, this appears little changed from previous examination of 02/13/18. This could represent infectious process or scar. Neoplastic disease not likely but not entirely excluded. No hernia identified. [id number]: Total DLP = 0.00 mGy-cm Ordered By: Luis A Saleem DO [facility] General Date/Time Provider Initiated Documentation: 08/22/18 11:43 . HPI Narrative: This is a pleasant 50-year-old female with no significant past medical history who presents for vaginal bleeding. Patient states that vaginal bleeding started 1 month ago on July 24, she has been [facility] and had an ultrasound 1 week ago that showed a thickening of the endometrial stripe. The bleeding was notably mild over the last 3 to 4 weeks, however over the last 72 hours and his notably increased, is going through a new pad every 1-1/2 hours and she states that it is soaked. She does admit to mild cramping but that is normal. She denies any other urinary symptoms, vomiting or diarrhea, or any previous vaginal bleeding. She is not on control and is not been on control greater than 2 years. She denies any previous surgical history. She also complains of a small lump in her left lower abdomen. She states that it is tender to palpation, and is been present for the last few weeks. Patient has no other complaints at this time. No other modifying factors. Of note she does state that they tried to call [facility] multiple times today and they were unable to get in contact with anyone. 10 years ago the patient did have chlamydia, but no sexually transmitted infection since then. Related Data Home Medications Medication Instructions Recorded Confirmed albuterol sulfate HFA 90 2 puff IH Q6H PRN 08/17/18 08/22/18 mcg/actuation aerosol inhaler norethindrone 1 mg-ethinyl 1 tab PO DAILY #84 tab 08/22/18 estradiol 20 mcg (24)-iron 75 mg (4) tablet Previous Rx's Medication Instructions Recorded norethindrone 1 mg-ethinyl 1 tab PO DAILY #84 tab 08/22/18 estradiol 20 mcg (24)-iron 75 mg (4) tablet Allergies Allergy/AdvReac Type Severity Reaction Status Date / Time sertraline HCl [From Zoloft] Allergy Unverified 08/22/18 11:44 Environmental Allergy Intermediate Runny Uncoded 08/22/18 11:44 nose, sneezing General Stated Complaint: Abd Prob SOBIA: 3 Review of Systems Review of Systems All systems reviewed & are unremarkable except as noted in HPI and below PFSH Social History Smoking/Tobacco Use Status: Never Alcohol Intake: never Drug use: Never Substance use type: does not use Do you feel safe at home: Yes Do you feel safe in your relationship?: Yes Female Reproductive History Menstrual Age of Menarche: 10 control method: none and other (fiance with vasectomy) History History 0 Para Hx # Term Pregnancies Multiple births Hx # Pregnancies Ectopic pregnancies AB induced Hx Number of Living Children AB spontaneous Exam Narrative Exam Narrative: 1.Const: Well-nourished, Well-developed, appearing stated age 2.Eyes: PERRL, no conjunctival injection, and symmetrical lids. 3.ENT: Atraumatic external nose and ears. Moist MM. Neck: Symmetric, trachea midline, No thyromegaly. 4.CVS: +S1/S2, No murmurs or gallops. Peripheral pulses 2+ and equal in all extremities. Brisk capillary refill in all extremities. 5.RESP: Unlabored respiratory effort. Clear to auscultation bilaterally. No wheezes rales or rhonchi 6.GI: Soft, Nontender/Nondistended, No hepatosplenomegaly. No guarding or rebound. There is a small firm mass in the left lower subcutaneous region that is notably tender and palpable. It certainly feels atypical of a hernia. Primary concern is for a firm lipoma. No significant pelvic tenderness on palpation. No pain at McBurney's point, negative Jauregui sign Genital exam: Genital exam was performed with female nurse Kera at bedside, vaginal exam demonstrates notable blood in the vaginal vault, with vaginal bleeding. No brisk flow though. No cervical lesions. Tenderness was present on palpation of the cervix and for bimanual exam bilaterally. Negative chandelier sign. 7.MSK: Normocephalic/Atraumatic, Extremities w/o deformity or ttp No cyanosis or clubbing, Normal movement of all extremities 8.Skin: Warm, Dry. No rashes or lesions. 9.Neuro: pin drafter II-XII grossly intact. Sensation grossly intact, no focal neurologic deficits. 10.Psych: (AAO) x3. Appropriate mood and affect Course Vital Signs Temperature 37.3 C 08/22/18 11:42 Pulse 80 08/22/18 11:42 Respiratory Rate 16 08/22/18 11:42 Blood Pressure 159/92 H 08/22/18 11:42 Pulse Oximetry 100 08/22/18 11:42 Temperature 37.3 C 08/22/18 11:42 Temperature Source Skin 08/22/18 11:42 Pulse 80 08/22/18 11:42 Respiratory Rate 16 08/22/18 11:42 Respiratory Effort 08/22/18 11:45 Blood Pressure 159/92 H 08/22/18 11:42 Blood Pressure Position Sitting 08/22/18 11:42 Pulse Oximetry 100 08/22/18 11:42 Oxygen Delivery Method Room Air 08/22/18 11:42 Oxygen Flow Rate 0 08/22/18 11:42 Pain Level 5 08/22/18 11:42
[2018-08-22 12:19] LABS: Abs Immature Grans 0.01 k/cumm (0.0-0.09); Absolute Basophil Count 0.02 k/cumm (0.0-0.2); Absolute Eosinophil Count 0.06 k/cumm (0.0-0.7); Absolute Lymphocyte Count 2.36 k/cumm (1.2-3.4); Absolute Neutrophil Count 4.67 k/cumm (1.2-6.7); Basophils % 0.3; Eosinophils % 0.8; HCT 38.8 % (36.0-46.0); HGB 13.1 g/dL (12.0-15.5); Immature Grans % 0.1; Mean Corp. HGB Concentration 33.8 g/dL (32.0-36.0); Mean Corpuscular Hemoglobin 29.2 pg (27.0-33.0); Mean Corpuscular Volume 86.6 fL (80-95); Mean Platelet Volume 9.8 fL (8.0-11.0); Monocytes % 6.6; Neutrophils % 61.2; Platelet Count 347 x1000/uL (130-400); RBC 4.48 m/cumm (4.00-5.20); RBC Distribution Width 13.4 % (11.7-14.6); White Blood Cell Count 7.62 k/cumm (4.4-10.8)
[2018-08-22] MEDS: Normal Saline 1,000 ML 1000 ML IV (12:32)
[2018-08-22 12:38] LABS: ALT 21 U/L (12-78); AST 15 U/L (15-37); Albumin 3.9 g/dL (3.4-5.0); Alkaline Phosphatase 89 U/L (46-116); Anion Gap 7.5 mmol/L (3-11); BUN 11 mg/dL (7-18); Bilirubin, Total 0.4 mg/dL (0.2-1.0); CO2 26.5 mmol/L (21.0-32.0); CREATININE 0.72 mg/dL (0.55-1.02); Calcium 8.6 mg/dL (8.5-10.1); Chloride 105 mmol/L (98-107); Glucose 99 mg/dL (70-100); Potassium 3.3 mmol/L (3.5-5.1); Sodium 139 mmol/L (136-145); Total Protein 7.8 g/dL (6.4-8.2)
[2018-08-22] MEDS: Omnipaque 350 MG/ML 100 ML BTL IJ (12:52)
== END 2018-08-22 14:42 | disposition home or self-care (01) ==
PROVIDERS: Emergency Provider Student in an Organized Health Care Education/Training Program; PCP Family Medicine
DX: N93.9 Abnormal uterine and vaginal bleeding, unspecified (principal)
CPT/HCPCS: 36415; 80053; 86850; 86900; 86901; 96360; 99285; 74177; 85025; 99284; J3490

== ENCOUNTER 2022-10-01 00:41 | Emergency (ER) | payer OTHER, SELFPAY ==
[2022-10-01 00:49] VITALS: BP 178/105; PULSE 79; RESP 16; TEMP 37.1; O2SAT 100
--- NOTE | 2022-10-01 02:46 | ED.GENADUL_ITS ---
Discharge Plan Disposition Patient Disposition: Home Condition: Improving Discharge Details Clinical Impression: Strep pharyngitis Primary Care Provider: Jenifer Guzman ED Provider: Elisa Manzano Home Meds and New Rx's Prescriptions: New azithromycin [Zithromax] 250 mg tablet 250 mg PO DAILY 4 Days Qty: 4 0RF Rx Instructions: start on day 2 of therapy No Action albuterol sulfate 90 mcg/actuation HFA aerosol inhaler 2 puff IH Q6H PRN Discharge Instructions Instructions: Strep Throat (ED) Additional Instructions: Start Zithromax 250 mg once a day for the next 4 days. Call your primary care provider for follow-up appointment and recheck and asked for a Monospot test if you are continuing to have symptoms. Return here for any difficulty breathing, talking or swallowing or any new or worrisome concerns. We recommend that you take a probiotic or eat foods with probiotics in the such as complete or [place] yogurt while on antibiotics. He is Discharge Data Discharge Physician: Elisa Manzano [facility] General Date/Time Provider Initiated Documentation: 10/01/22 02:46 . Related Data Home Medications Medication Instructions Recorded Confirmed albuterol sulfate 90 mcg/actuation 2 puff inhalation Q6H PRN 08/17/18 09/27/18 aerosol inhaler azithromycin 250 mg tablet 250 mg PO DAILY 4 days #4 tabs 10/01/22 (Zithromax) Previous Rx's Medication Instructions Recorded azithromycin 250 mg tablet 250 mg PO DAILY 4 days #4 tabs 10/01/22 (Zithromax) Allergies Allergy/AdvReac Type Severity Reaction Status Date / Time sertraline HCl [From Zoloft] Allergy Unverified 09/27/18 15:51 Environmental Allergy Intermediate Runny Uncoded 09/27/18 15:51 nose, sneezing General Stated Complaint: Sorethroat SOBIA: 4 PFSH All Active Problems (Updated 10/01/22 @ 03:01 by Elisa Manzano MD) Strep pharyngitis (Acute) Asthma (Acute 07/02/14) Medical History (Updated 10/01/22 @ 03:01 by Elisa Manzano MD) Anxiety Asthma used MDI Exercise induced. Family History Mother No problems noted. Father No problems noted. Other Endometriosis of fallopian tube Social History Smoking/Tobacco Use Status: Never Smoking risk assessment performed?: Yes Alcohol Intake: never Drug use: Never Substance use type: does not use Do you feel safe at home: Yes Do you feel safe in your relationship?: Yes Female Reproductive History Menstrual Age of Menarche: 10 control method: none and other (fiance with vasectomy) History History 2 Para 2 Hx # Term Pregnancies Multiple births Hx # Pregnancies Ectopic pregnancies AB induced Hx Number of Living Children AB spontaneous Course Vital Signs Vital signs: Vital Signs Temperature 37.1 C 10/01/22 00:49 Pulse 79 10/01/22 00:49 Respiratory Rate 16 10/01/22 00:49 Blood Pressure 178/105 H 10/01/22 00:49 Pulse Oximetry 100 10/01/22 00:49 Temperature 37.1 C 10/01/22 00:49 Temperature Source Temporal Artery Scan 10/01/22 00:49 Pulse 79 10/01/22 00:49 Respiratory Rate 16 10/01/22 00:49 Respiratory Effort Normal 10/01/22 00:49 Blood Pressure 178/105 H 10/01/22 00:49 Blood Pressure Position Sitting 10/01/22 00:49 Pulse Oximetry 100 10/01/22 00:49 Oxygen Delivery Method Room Air 10/01/22 00:49 Oxygen Flow Rate 0 10/01/22 00:49 Pain Level 8 10/01/22 00:49 Lab/Test Results Lab/Test Results: POC Strep Test-PAUL(Rapid) Start: 10/01/22 01:49 Freq: .Rapid Strep Test Status: Active Protocol: Document 10/01/22 01:50 MMQ (Rec: 10/01/22 01:50 [id number] [id number]) Strep test-PAUL(Rapid)-POC POC-Strep test-PAUL (Rapid) Positive POC-Strep test-PAUL (Rapid) Positive
[2022-10-01] MEDS: Azithromycin 250 MG TAB 500 MG PO (03:05)
[2022-10-01 04:02] VITALS: BP 151/95; PULSE 57; RESP 18; O2SAT 97
== END 2022-10-01 04:03 | disposition home or self-care (01) ==
PROVIDERS: Emergency Provider Emergency Medicine Emergency Medical Services; PCP Family Medicine
DX: J02.0 Streptococcal pharyngitis (principal); J45.909 Unspecified asthma, uncomplicated
CPT/HCPCS: 87880; 99283

== ENCOUNTER 2023-04-19 15:10 | Outpatient (REF) | payer OTHER, SELFPAY ==
--- NOTE | 2023-04-19 14:45 | PAPFT_PTH ---
PATIENT: Becky Brown LOC: [facility] U#:[id number] AGE/SX: 32/F ROOM: RE04/19/[address]: Chanel Go MD : 1990 BED: DIS: 04/19/2023 SPEC #: [id number] RECD: 04/20/23 12:51 STATUS: SETHVanessa REElvis #: [id number] GLORIA: 04/19/23 14:[address]: Chanel Go DEPT: [facility] Cytology RECD BY: Grazyna Paul ENTERED: 04/20/23 12:51 SP TYPE: PAPFT SONUHR DR: Jenifer Guzman Tissues: 1 - CX/ENDOCX FOR PAP SMEARS Procedures: PAP THIN PREP/UVM Screening HPV DNA PROBE Comments: [id number]
== END 2023-04-19 15:11 | disposition home or self-care (01) ==
LOC: LBN 15:10
PROVIDERS: PCP Family Medicine; Visit Provider Obstetrics & Gynecology
DX: Z01.419 Encounter for gynecological examination (general) (routine) without abnormal findings (principal)
CPT/HCPCS: 88142; 87624

== ENCOUNTER → 2023-04-22 01:18 | Outpatient (CLI) | payer OTHER, SELFPAY ==
--- NOTE | 2023-04-22 13:38 | DI.MAMMO_ITS ---
Exam(s) US BREAST RT COMPLETE MAMMO DIAGNOSTIC BI EXAM: MAMMO DIAGNOSTIC BI and U/S breast RT complete CLINICAL HISTORY: nipple discharge,n64.52. TECHNIQUE: Craniocaudal and mediolateral oblique Full Field Digital Mammography views with Computer Aided Diagnosis followed by Tomosynthesis and right breast ultrasound. COMPARISON: This is a baseline examination. FINDINGS: Mammography/Tomosynthesis: Masses/Architectural Distortion: None seen. Microcalcifictions: No suspicious pleomorphic-type are seen. Skin Thickening/Nipple Retraction: None. Complete right breast US: All 4 quadrants of the right breast were evaluated sonographically includin g the right axilla and right retroareolar region. Echotexture: Normal appearance of the glandular tissue. Shadowing: No suspicious foci. Cyst: There is a simple cyst seen at 11 o'clock in the right breast. It measures 0.6 x 0.2 x 0.6 cm. It is 5 cm from the nipple. Solid lesions: None seen. Ductal dilation: None. IMPRESSION: 1. No evidence of malignancy is noted. 2. Unless there is more urgent need, follow-up screening mammography as per [employer] [place] [employer] g uidelines. 3. The findings were discussed with the patient on the date of the examination. BI-RADS Category 2 - Benign Findings Breast Density - Category B - Scattered areas of fibroglandular density Breast density Category C or D implies that the patient has dense breast tissue. Dense breast tissue can make it harder to find cancer on a mammogram. Dense breast tissue is also associated with an incr eased risk of breast cancer. This information about the result of the mammogram report was provided to the patient to raise their awareness. Use this report when you speak with the patient about their risks for breast cancer, which includes their family history. At that time, you may recommend additional screening tests (Ultrasoun d or MRI) as these tests may add significant information. A negative radiographic report should not delay biopsy if a dominant or clinically suspicious mass is present. Up to ten percent of cancers are not identified on mammography. A negative report may reinforce clinical impression. Adenosis and dense breasts may obscure an underlying neoplasm. False positive reports average 6 to 10%. Patient will receive a letter notifying them of these results.
== END ==
PROVIDERS: PCP Family Medicine; Visit Provider Obstetrics & Gynecology
DX: N64.52 Nipple discharge (principal)
CPT/HCPCS: 76642; 77062; 77066; G0279

== ENCOUNTER 2023-04-29 03:20 | Emergency (ER) | payer OTHER, SELFPAY ==
[2023-04-29 03:22] VITALS: BP 199/108; PULSE 78; RESP 18; TEMP 36.8; O2SAT 97
[2023-04-29 03:29] VITALS: O2SAT 100
[2023-04-29 03:30] VITALS: O2SAT 100
--- NOTE | 2023-04-29 03:30 | DI.CT_ITS ---
Exam(s) CT ABDOMEN PELVIS WO EXAM: CT ABDOMEN PELVIS WO CLINICAL HISTORY: left flank pain, r/o stone. TECHNIQUE: Imaging Protocol: Axial computed tomography images with coronal and sagittal reformatted images were created and reviewed CONTRAST MATERIAL: Intravenous: none Oral: None COMPARISON: CT CT ABDOMEN PELVIS W from 08/22/2018 FINDINGS: VISUALIZED LUNG BASES: No nodules nor pleural effusions evident. ABDOMEN: There is no ascites. LIVER: There are no obvious focal hepatic lesions evident of this noninfused study. GALLBLADDER/BILIARY: No obvious gallbladder pathology. CBD is not dilated. PANCREAS: No evidence of pancreatic mass nor dilatation of the pancreatic duct. SPLEEN: Spleen is not enlarged. No obvious intrasplenic lesions. ADRENALS: Right adrenal gland unremarkable. There is again noted a well-defined 14 x 11 mm uniformly hypodense nodule in the left adrenal gland with density measurements averaging -25 HU, unchanged fro m the previous 2019 scan and most probably a benign adenoma. KIDNEYS:No cysts evident. No solid renal masses. No calculi nor hydronephrosis. . ABDOMINAL AORTA: Abdominal aorta is not enlarged. LYMPH NODES: There is no retroperitoneal nor paraaortic adenopathy. ABDOMINAL WALL: No evidence of significant anterior abdominal wall nor inguinal hernia. Previously d escribed increased markings in the subcutaneous fat layer below in left of the umbilicus is again not ed but significantly decreased from the prior study. No evidence of abscess at this level nor abnorm ality of the subjacent rectus abdominus musculature. GI: There is no evidence of bowel obstruction, free air, nor abscess. PELVIS: LYMPH NODES: There is no intrapelvic nor inguinal adenopathy. GI: No evidence of appendicitis.No evidence of sigmoid diverticulitis. URINARY BLADDER: No calculi nor obvious masses evident REPRODUCTIVE: Uterus and adnexal regions appear age-appropriate. No free fluid. OSSEOUS: No significant osseous lesions. No fractures. IMPRESSION: 1. No acute findings in the abdomen pelvis. No radiopaque calculi evident in the kidneys and ureters nor within the urinary bladder. No hydronephrosis. 2. Stable 14 x 11 millimeter left adrenal adenoma. Does not require follow-up RADIATION DOSE DELIVERED: 1,064.94mGy.cm Total DLP DATA REPOSITORY: All CT scans at this facility are submitted to the National Radiology Data Registry (NRDR) Dose Index Registry (DIR) with the [employer] (ACR). RADIATION OPTIMIZATION: All CT scans at this facility use at least one of these dose optimization te chniques: automated exposure control; mA and/or kV adjustment per patient size (includes targeted exa ms where dose is matched to clinical indication); or iterative reconstruction.
[2023-04-29 03:31] VITALS: BP 188/75; PULSE 73; PULSE 74; RESP 18; O2SAT 98
[2023-04-29] MEDS: Ketorolac 15 MG/ML VIAL IVP (03:42)
[2023-04-29] MEDS: Normal Saline 1,000 ML 1000 ML IV (03:43)
[2023-04-29 03:50] LABS: Abs Immature Grans 0.02 10^3/uL (0.0-0.06); Absolute Eosinophil Count 0.14 10^3/uL (0.0-0.7); Absolute Lymphocyte Count 3.86 10^3/uL (1.2-3.4); Absolute Monocyte Count 0.68 10^3/uL (0.1-0.8); Absolute Neutrophil Count 4.92 10^3/uL (1.2-6.7); Eosinophils % 1.4; HCT 35.5 % (36.0-46.0); HGB 12.1 g/dL (11.2-15.7); Immature Grans % 0.2; Lymphocytes % 39.7; MCH 28.9 pg (27.0-33.0); MCHC 34.1 % (32.0-36.0); MCV 85 fL (80-95); Neutrophils % 50.7; Platelet Count 357 10^3/uL (130-400); RBC 4.19 10^6/uL (3.93-5.22); RDW 13.2 % (11.7-14.6); RDW-SD 40.5 fL; WBC 9.72 10^3/uL (4.4-10.8)
[2023-04-29 03:51] LABS: Bilirubin Negative (Negative); Blood Small (Negative); Clarity Clear (Clear); Glucose Negative (Negative); Ketones Negative (Negative); Leukocyte Esterase Moderate (Negative); Nitrite Negative (Negative); Specific Gravity 1.025 (1.005-1.025); Urobilinogen 0.2 mg/dL (Up to 0.2)
--- NOTE | 2023-04-29 03:52 | W.ED.GENAD ---
HPI General Date/Time Provider Initiated Documentation: 04/29/23 03:22. HPI Narrative: 32-year-old female with a past medical history of hypertension, asthma, presents today for evaluation of left-sided flank pain. Patient states that it began shortly after dinner. She had hotdogs and macaroni and cheese for dinner. She describes it as a constant dull stabbing pain. Does not radiate anywhere else. She denies any urinary complaints. It is isolated in the left flank. She denies any vomiting or diarrhea. She did take Tylenol but this did not improve her symptoms. Family history is positive for kidney stones. She denies any cough chest pain or shortness of breath. Pain is made worse by laying on the left-hand side. No other complaints at this time. Related Data Home Medications Medication Instructions Recorded Confirmed albuterol sulfate 90 mcg/actuation 2 puff inhalation Q6H PRN 08/17/18 04/29/23 aerosol inhaler cephalexin 500 mg capsule 500 mg PO QID 7 days #28 caps 04/29/23 Previous Rx's Medication Instructions Recorded cephalexin 500 mg capsule 500 mg PO QID 7 days #28 caps 04/29/23 Allergies Allergy/AdvReac Type Severity Reaction Status Date / Time sertraline HCl [From Zoloft] Allergy Cardiac Unverified 04/29/23 03:45 Dysrhythmia trazodone Allergy Other (See Unverified 04/29/23 03:45 Comment) Environmental Allergy Intermediate Runny Uncoded 04/29/23 03:45 nose, sneezing General Stated Complaint: FlankPain SOBIA: 3 Review of Systems All systems reviewed & are unremarkable except as noted in HPI and below Exam Narrative Exam Narrative: 1.Const: Well-nourished, Well-developed, appearing stated age 2.Eyes: PERRL, no conjunctival injection, and symmetrical lids. 3.ENT: Atraumatic external nose and ears. Moist MM. Neck: Symmetric, trachea midline, No thyromegaly. 4.CVS: +S1/S2, No murmurs or gallops. Peripheral pulses 2+ and equal in all extremities. Brisk capillary refill in all extremities. 5.RESP: Unlabored respiratory effort. Clear to auscultation bilaterally. No wheezes rales or rhonchi 6.GI: Soft, nondistended. No guarding or rebound. Mild left-sided CVA tenderness. Mild left-sided abdominal tenderness. 7.MSK: Normocephalic/Atraumatic, Extremities w/o deformity or ttp No cyanosis or clubbing, Normal movement of all extremities 8.Skin: Warm, Dry. No rashes or lesions. 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 Sensation grossly intact, no focal neurologic deficits. 10.Psych: (AAO) x3. Appropriate mood and affect Course Vital Signs Vital signs: Vital Signs Temperature 36.8 C 04/29/23 03:22 Pulse 78 04/29/23 03:22 Respiratory Rate 18 04/29/23 03:22 Blood Pressure 199/108 H 04/29/23 03:22 Pulse Oximetry 97 04/29/23 03:22 Temperature 36.8 C 04/29/23 03:22 Pulse 74 04/29/23 03:31 Respiratory Rate 18 04/29/23 03:31 Respiratory Effort Normal 04/29/23 03:27 Blood Pressure 188/75 H 04/29/23 03:31 Pulse Oximetry 98 04/29/23 03:31 Oxygen Delivery Method Room Air 04/29/23 03:31 Oxygen Flow Rate 0 04/29/23 03:31 Pain Level 5 04/29/23 03:22 Lab/Test Results Lab/Test Results: Laboratory Tests Range/Units 04/29/23 03:30 WBC (4.4-10.8) 10^3/uL 9.72 RBC (3.93-5.22) 10^6/uL 4.19 Hgb (11.2-15.7) g/dL 12.1 Hct (36.0-46.0) % 35.5 L MCV (80-95) fL 85 MCH (27.0-33.0) pg 28.9 MCHC (32.0-36.0) % 34.1 RDW (11.7-14.6) % 13.2 Plt Count (130-400) 10^3/uL 357 MPV (8.0-11.0) fL 10.0 Immature Gran % 0.2 Neutrophils % 50.7 Lymphocytes % 39.7 Monocytes % 7.0 Eosinophils % 1.4 Basophils % 1.0 Nucleated RBC % (0.0-0.3) % 0.0 Absolute Neutrophils (1.2-6.7) 10^3/uL 4.92 Absolute Lymphocytes (1.2-3.4) 10^3/uL 3.86 H Absolute Monocytes (0.1-0.8) 10^3/uL 0.68 Absolute Eosinophils (0.0-0.7) 10^3/uL 0.14 Absolute Basophils (0.0-0.2) 10^3/uL 0.10 POC- Test(urine) Negative Medical Decision Making 32-year-old female with a past medical history of hypertension, asthma, presents today for evaluation of left-sided flank pain. Patient states that it began shortly after dinner. She had hotdogs and macaroni and cheese for dinner. She describes it as a constant dull stabbing pain. Does not radiate anywhere else. She denies any urinary complaints. It is isolated in the left flank. She denies any vomiting or diarrhea. She did take Tylenol but this did not improve her symptoms. Family history is positive for kidney stones. She denies any cough chest pain or shortness of breath. Pain is made worse by laying on the left-hand side. No other complaints at this time. Physical exam demonstrates mild left CVA tenderness, mild left flank tenderness. No guarding or rebound or signs of an acute surgical abdomen. Symptoms are concerning for diverticulitis versus kidney stone. Will get a CT scan rehydrate treat her pain, monitor closely and reassess. 5:10 AM Laboratory workup is relatively stable, potassium slightly low at 3.1. Initial urinalysis showed evidence of infection however there were a fair amount of epithelial cells. Repeat urinalysis was performed which shows essentially rare epithelials but still does show infection. Suspect this is the cause of the patient's pain. CAT scan results have returned, radiology sees no evidence of acute intra-abdominal process, kidney stone or other abnormality otherwise. Left adrenal adenomas noted, which is otherwise stable with no follow-up recommended. No evidence of hemorrhage. On reassessment patient's pain is notably improved after NSAID therapy. Patient was given 2 g of ceftriaxone here, she will be given a prescription for Keflex for home use. Patient will be discharged home. Discussed red flags for which to return. She was given 40 mill equivalents of potassium for her slightly low potassium. I have extensively reviewed the treatment plan and discharge instructions with the patient. I have addressed all patient concerns at this time. The patient was made aware of what symptoms to monitor for that would warrant a return to the emergency department. Discussed the plan with the patient, they demonstrate verbal understanding and agreement with our assessment and plan at this time. The documentation in this chart was dictated using [employer] dictation software. Please excuse any dictation errors. FINDINGS: Lungs: Mild left posterior dependent atelectasis. Heart: Base of heart is unremarkable as visualized. Liver: Normal. No mass. Gallbladder and bile ducts: Gallbladder is decompressed limiting evaluation. Pancreas: Normal. No ductal dilation. Spleen: Normal. No splenomegaly. Adrenal glands: Normal. No mass. Kidneys and ureters: Normal. No hydronephrosis. Stomach and bowel: Unremarkable. No obstruction. No mucosal thickening. Appendix: No evidence of appendicitis. Intraperitoneal space: Unremarkable. No free air. No significant fluid collection. Vasculature: Right pelvic phleboliths. Lymph nodes: Unremarkable. No enlarged lymph nodes. Urinary bladder: Unremarkable as visualized. Reproductive: Well circumscribed left adnexal round mass of the medial arm. Internal Hounsfield units -27, consistent with benign entity likely lipid rich adenoma. Mass measures a proximally 14 x 11 mm (series 2, image 15) Bones/joints: Unremarkable. No acute fracture. Soft tissues: Unremarkable. IMPRESSION: 1. No acute intra-abdominal findings. 2. Left adrenal lipid rich adenoma. No follow-up is required. Thank you for allowing us to participate in the care of your patient. Dictated and Authenticated by: Chirag Fernandes DO 04/29/2023 4:26 AM Eastern Time ([place] & [place]) Quality:SDOH Health Related Social Needs: No Data to Display PFSH All Active Problems (Updated 04/29/23 @ 05:09 by Luis A Saleem DO) Acute hypokalemia (Acute) UTI (urinary tract infection) (Acute) Hypertension (Chronic) Nipple discharge (Acute) Asthma (Acute 07/02/14) Medical History (Updated 04/29/23 @ 05:09 by Luis A Saleem DO) Asthma used MDI Exercise induced. Anxiety Family History Other Breast cancer Diabetes Endometriosis of fallopian tube Heart disease Hypertension Ovarian cancer Stroke Social History Smoking/Tobacco Use Status: Never Smoking risk assessment performed?: Yes Alcohol Intake: never Drug use: Never Substance use type: does not use Do you feel safe at home: Yes Do you feel safe in your relationship?: Yes Female Reproductive History Menstrual Age of Menarche: 10 control method: none and other (fiance with vasectomy) History History 2 Para 2 Hx # Term Pregnancies Multiple births Hx # Pregnancies Ectopic pregnancies AB induced Hx Number of Living Children AB spontaneous Past Pregnancies Del. Date GA/Weeks # Preg Succ Route Wgt Sex Labor Lgth Anesthesia Location Prov Complic 12/04/14 Yes vaginal 3345.244 g Male [facility] 12/19/16 Yes vaginal 3458.642 g Female [facility] Discharge Plan Disposition Patient Disposition: Home Condition: Good Discharge Details Clinical Impression: UTI (urinary tract infection), Acute hypokalemia Primary Care Provider: Jenifer Guzman ED Provider: Luis A Saleem Home Meds and New Rx's Prescriptions: New cephalexin 500 mg capsule 500 mg PO QID 7 Days Qty: 28 0RF No Action albuterol sulfate 90 mcg/actuation HFA aerosol inhaler 2 puff IH Q6H PRN Discharge Instructions Instructions: Urinary Tract Infection in Women (ED) Additional Instructions: At this time your CAT scan shows no significant abnormality of kidney stones or other major new problem. You do have a small chronic fibrous area of tissue that is unchanged and stable. Your potassium was slightly low today, this has been corrected with the oral potassium that was given to you. You do have evidence of urinary tract infection which I suspect is the primary cause of your symptoms today. You have been given a dose of antibiotics through the IV here. Please continue to take the antibiotics at home. Antibiotics have been sent to your pharmacy on file. You can take 800 mg of Motrin every 6 hours and 1000 mg of Tylenol every 6 hours. These are the maximum doses. Please take this for pain. Please take cranberry concentrate or cranberry supplement while treating your urinary tract infection. If you notice any worsening of your symptoms, or any new symptoms such as vomiting, diarrhea, fever, chills, shortness of breath, chest pain, numbness, weakness, or fainting , please return immediately to the emergency department for reevaluation. Please follow up with your primary care provider as soon as possible for reassessment and reevaluation. As always, it was a pleasure participating in your medical care today. Referrals: Jenifer Guzman [Primary Care Provider] -
[2023-04-29 03:56] LABS: Bacteria Few HPF (Negative); C & S Indicated? No/Sq. Contamination; Casts Negative LPF (Negative); Crystals Negative HPF (Negative); Epithelial Cells Many HPF (Negative); Mucus Negative (Negative)
[2023-04-29 04:01] LABS: ALT 18 U/L (14-59); AST 11 U/L (15-37); Alkaline Phosphatase 88 U/L (46-116); Anion Gap 10.9 mmol/L (3-11); BUN 12 mg/dL (7-18); Bilirubin, Total 0.5 mg/dL (0.2-1.0); CO2 28.1 mmol/L (21.0-32.0); CREATININE 0.8 mg/dL (0.55-1.02); Calcium 9.1 mg/dL (8.5-10.1); Chloride 103 mmol/L (98-107); Estimated GFR 100.33 (mL/min/1.73m2); Glucose 100 mg/dL (74-106); Potassium 3.1 mmol/L (3.5-5.1); Sodium 142 mmol/L (136-145); Total Protein 7.7 g/dL (6.4-8.2)
[2023-04-29] MEDS: cefTRIAXone 2 GM/50 ML BAG IVPB (04:22)
--- NOTE | 2023-04-29 04:26 | DI.VRAD_ITS ---
PROCEDURE INFORMATION: Exam: CT Abdomen And Pelvis Without Contrast Exam date and time: 04/29/2023 3:56 AM Age: 32 years old Clinical indication: Abdominal pain; Flank; Left; Additional info: Left flank pain, R/O stone TECHNIQUE: Imaging protocol: Computed tomography of the abdomen and pelvis without contrast. COMPARISON: CT ABDOMEN PELVIS W 08/22/2018 12:42 PM FINDINGS: Lungs: Mild left posterior dependent atelectasis. Heart: Base of heart is unremarkable as visualized. Liver: Normal. No mass. Gallbladder and bile ducts: Gallbladder is decompressed limiting evaluation. Pancreas: Normal. No ductal dilation. Spleen: Normal. No splenomegaly. Adrenal glands: Normal. No mass. Kidneys and ureters: Normal. No hydronephrosis. Stomach and bowel: Unremarkable. No obstruction. No mucosal thickening. Appendix: No evidence of appendicitis. Intraperitoneal space: Unremarkable. No free air. No significant fluid collection. Vasculature: Right pelvic phleboliths. Lymph nodes: Unremarkable. No enlarged lymph nodes. Urinary bladder: Unremarkable as visualized. Reproductive: Well circumscribed left adnexal round mass of the medial arm. Internal Hounsfield units -27, consistent with benign entity likely lipid rich adenoma. Mass measures a proximally 14 x 11 mm (series 2, image 15). Bones/joints: Unremarkable. No acute fracture. Soft tissues: Unremarkable. IMPRESSION: 1. No acute intra-abdominal findings. 2. Left adrenal lipid rich adenoma. No follow-up is required. Dictated and Authenticated by: Chirag Fernandes MD. Ordering:BI Gunn MD
[2023-04-29] MEDS: Potassium Chloride 10 MEQ CAPCR 40 MEQ PO (04:33)
[2023-04-29 04:40] VITALS: BP 168/95; PULSE 65; RESP 18; O2SAT 99
[2023-04-29 04:43] LABS: Bilirubin Negative (Negative); Blood Negative (Negative); Clarity Clear (Clear); Glucose Negative (Negative); Ketones Negative (Negative); Leukocyte Esterase Moderate (Negative); Nitrite Negative (Negative); Specific Gravity 1.015 (1.005-1.025); Urobilinogen 0.2 mg/dL (Up to 0.2)
[2023-04-29 04:50] LABS: Bacteria Rare HPF (Negative); C & S Indicated? Yes; Casts Negative LPF (Negative); Crystals Negative HPF (Negative); Epithelial Cells Rare HPF (Negative); Mucus Negative (Negative); RBC 0-2 HPF (0-2)
[2023-04-29] MEDS: ACETAMINOPHEN 1,000 MG/100 ML BTL 400 MG IVPB (04:50)
[2023-04-29 05:18] VITALS: PULSE 63; RESP 18; O2SAT 100
== END 2023-04-29 05:19 | disposition home or self-care (01) ==
PROVIDERS: Emergency Provider Student in an Organized Health Care Education/Training Program; PCP Family Medicine
DX: N39.0 Urinary tract infection, site not specified (principal); R10.9 Unspecified abdominal pain; E87.6 Hypokalemia
CPT/HCPCS: 80053; 96365; 96375; 99284; 74176; 81003; 81015; 85025; 87086; 99283; J0131; J0696; J1885